=== PATIENT | female | born 1970 | race Two or more races ===

== ENCOUNTER 2021-08-24 12:47 | Emergency (ER) | payer MEDICAID, OTHER ==
[~2021-08-24] VITALS: Ht 152.4 cm; Wt 56.7 kg
[2021-08-24 14:08] LABS: Urine Bacteria FEW /hpf (None Seen); Urine Blood Negative /uL (Negative); Urine Specific Gravity 1.028 (1.001-1.035); Urine WBC 19 /hpf (0 - 5)
[2021-08-24] MEDS ORDERED: SULF400T11 PO (16:25)
[2021-08-24 16:51] LABS: Basophils # (auto) 0 10 ^3/uL (0-0.2); Basophils % (auto) 0.3 % (0.0-2.0); Eosinophils # (auto) 0.1 10 ^3/uL (0-0.8); Eosinophils % (auto) 0.7 % (0.0-7.0); Hematocrit 34.6 % (36.0-46.0); Hemoglobin 11.9 g/dL (12.2-16.2); Lymphocytes # (auto) 2.4 10 ^3/uL (0.4-5.4); Lymphocytes % (auto) 26.5 % (10.0-50.0); Mean Corpuscular Hgb Conc. 34.3 g/dL (32.0-36.0); Mean Corpuscular Volume 90.4 fL (80.0-100.0); Monocytes # (auto) 0.4 10 ^3/uL (0-1.3); Monocytes % (auto) 4.9 % (0.0-12.0); Neutrophils # (auto) 6.1 10 ^3/uL (1.6-8.6); Neutrophils % (auto) 67.6 % (37.0-80.0); Red Blood Cells 3.82 10^6/uL (4.0-5.20); Red Cell Distribution Width 13.7 % (11.8-14.3)
[2021-08-24 17:02] LABS: Albumin 3.1 g/dL (3.4-5.0); BUN/Creatinine Ratio 17.1; Calcium 9.4 mg/dL (8.5-10.1); Potassium 4.2 mmol/L (3.5-5.1)
[2021-08-24 17:05] LABS: Bilirubin, Total 0.2 mg/dL (0.2-1.0); Total Protein 6.8 g/dL (6.4-8.2)
[2021-08-24 17:50] VITALS: BP 142/79
== END 2021-08-24 18:02 | disposition home or self-care (01) ==
LOC: ER 12:47
DX: N39.0 Urinary tract infection, site not specified (principal); I10 Essential (primary) hypertension; E11.9 Type 2 diabetes mellitus without complications
CPT/HCPCS: 36415; 74176; 80053; 81001; 81025; 83690; 85025

== ENCOUNTER 2021-12-14 16:47 | Emergency (ER) | payer MEDICAID ==
[~2021-12-14] VITALS: Ht 152.4 cm; Wt 54.4 kg
[~2021-12-14 16:47] MED LIST: SULF400T11 PO
[2021-12-14 18:18] LABS: Basophils # (auto) 0 10 ^3/uL (0-0.2); Basophils % (auto) 0.4 % (0.0-2.0); Eosinophils # (auto) 0 10 ^3/uL (0-0.8); Eosinophils % (auto) 0.1 % (0.0-7.0); Hematocrit 35.5 % (36.0-46.0); Hemoglobin 11.2 g/dL (12.2-16.2); Lymphocytes # (auto) 1.2 10 ^3/uL (0.4-5.4); Lymphocytes % (auto) 11.1 % (10.0-50.0); Mean Corpuscular Hemoglobin 29.3 pg (28.0-32.0); Mean Corpuscular Hgb Conc. 31.6 g/dL (32.0-36.0); Mean Corpuscular Volume 92.7 fL (80.0-100.0); Monocytes # (auto) 0.3 10 ^3/uL (0-1.3); Monocytes % (auto) 2.7 % (0.0-12.0); Neutrophils # (auto) 9.6 10 ^3/uL (1.6-8.6); Neutrophils % (auto) 85.7 % (37.0-80.0); Red Blood Cells 3.83 10^6/uL (4.0-5.20); Red Cell Distribution Width 13.8 % (11.8-14.3); White Blood Cell 11.2 10^3/uL (4.4-10.8)
[2021-12-14 18:31] LABS: Albumin 3.4 g/dL (3.4-5.0); Calcium 9.6 mg/dL (8.5-10.1); Potassium 5.2 mmol/L (3.5-5.1)
[2021-12-14 18:33] LABS: Bilirubin, Total 0.3 mg/dL (0.2-1.0)
[2021-12-14 19:28] LABS: BUN/Creatinine Ratio 14.7
[2021-12-14] MEDS ORDERED: InsuLIN REG 1unit/0.01ml Soln (100units/ml) SC ONE (19:45)
[2021-12-14 21:29] LABS: Urine Bacteria FEW /hpf (None Seen); Urine Blood TRACE /uL (Negative); Urine Specific Gravity 1.031 (1.001-1.035); Urine WBC 11 /hpf (0 - 5)
[2021-12-14 22:43] VITALS: BP 140/82
== END 2021-12-14 23:06 | disposition home or self-care (01) ==
LOC: ER 16:47
DX: E11.65 Type 2 diabetes mellitus with hyperglycemia (principal); I10 Essential (primary) hypertension
CPT/HCPCS: 36415; 80053; 81001; 82962; 85025; 96372; 99283; J1815

== ENCOUNTER 2022-05-13 10:40 | Emergency (ER) | payer MEDICAID ==
[~2022-05-13] VITALS: Ht 152.4 cm; Wt 57.0 kg
[2022-05-13] MEDS ORDERED: cloNIDine HCL 0.1 MG TAB PO ONE (11:15)
[2022-05-13] MEDS ORDERED: IBUPROFEN 400 MG TAB PO ONE (11:45)
[2022-05-13] MEDS ORDERED: ACETAMINOPHEN 325 MG TAB PO ONE (11:45)
[2022-05-13] MEDS ORDERED: LIDOCAINE 5% TOPICAL PATCH TOP ONE (11:45)
[2022-05-13] MEDS ORDERED: METHOCARBAMOL 500 MG TAB PO ONE (11:45)
[2022-05-13 12:26] LABS: Basophils # (auto) 0.1 10 ^3/uL (0-0.2); Basophils % (auto) 0.5 % (0.0-2.0); Eosinophils # (auto) 0.1 10 ^3/uL (0-0.8); Eosinophils % (auto) 0.4 % (0.0-7.0); Hematocrit 38.4 % (36.0-46.0); Hemoglobin 12.6 g/dL (12.2-16.2); Lymphocytes # (auto) 2.5 10 ^3/uL (0.4-5.4); Lymphocytes % (auto) 20.4 % (10.0-50.0); Mean Corpuscular Hemoglobin 29.7 pg (28.0-32.0); Mean Corpuscular Hgb Conc. 32.8 g/dL (32.0-36.0); Mean Corpuscular Volume 90.7 fL (80.0-100.0); Monocytes # (auto) 0.5 10 ^3/uL (0-1.3); Monocytes % (auto) 3.9 % (0.0-12.0); Neutrophils # (auto) 9.2 10 ^3/uL (1.6-8.6); Neutrophils % (auto) 74.8 % (37.0-80.0); Red Blood Cells 4.23 10^6/uL (4.0-5.20); Red Cell Distribution Width 13.3 % (11.8-14.3); White Blood Cell 12.3 10^3/uL (4.4-10.8)
[2022-05-13 12:47] LABS: Albumin 3.1 g/dL (3.4-5.0); BUN/Creatinine Ratio 19.2; Calcium 9.4 mg/dL (8.5-10.1); Potassium 4.1 mmol/L (3.5-5.1)
[2022-05-13 12:49] LABS: Bilirubin, Total 0.3 mg/dL (0.2-1.0); Total Protein 7.2 g/dL (6.4-8.2)
[2022-05-13 13:24] LABS: Urine Bacteria FEW /hpf (None Seen); Urine Blood TRACE /uL (Negative); Urine Specific Gravity 1.025 (1.001-1.035); Urine WBC 32 /hpf (0 - 5)
[2022-05-13] MEDS ORDERED: NITROFURANTOIN 100 mg CAP PO ONE (13:30)
[2022-05-13] MEDS ORDERED: ACET-1079 PO ×2 (16:33→17:05)
[2022-05-13] MEDS ORDERED: LIDO5DIS21 TOP ×2 (16:33→17:05)
[2022-05-13] MEDS ORDERED: CYCL-838 PO ×2 (16:33→17:05)
[2022-05-13] MEDS ORDERED: NITR-87 PO ×2 (16:33→17:05)
[2022-05-13] MEDS ORDERED: IBUP400T23 PO ×2 (16:33→17:05)
[2022-05-13 17:01] VITALS: BP 99/69
== END 2022-05-13 17:03 | disposition home or self-care (01) ==
LOC: ER 10:40
DX: N39.0 Urinary tract infection, site not specified (principal); R51.9 Headache, unspecified; E11.9 Type 2 diabetes mellitus without complications; I10 Essential (primary) hypertension; Z98.890 Other specified postprocedural states; Z79.899 Other long term (current) drug therapy
CPT/HCPCS: 36415; 70450; 80053; 81001; 81025; 85025; 86850; 86900; 86901

== ENCOUNTER 2022-07-28 21:06 | Emergency (ER) | payer MEDICAID ==
[~2022-07-28] VITALS: Ht 152.4 cm; Wt 61.3 kg
[~2022-07-28 21:06] MED LIST changes: +ACET-1079 PO; +CYCL-838 PO; +IBUP400T23 PO; +LIDO5DIS21 TOP; +NITR-87 PO
[2022-07-28 21:37] VITALS: BP 157/74
[2022-07-28] MEDS ORDERED: AMOX-277 PO (22:40)
[2022-07-28] MEDS ORDERED: IBUP800T27 PO (22:40)
[2022-07-28] MEDS ORDERED: HYDROcodone-ACET 5/325MG TAB PO ONE (22:45)
[2022-07-28] MEDS ORDERED: ONDANSETRON ODT 4 MG TAB PO ONE (22:45)
== END 2022-07-28 22:49 | disposition home or self-care (01) ==
LOC: ER 21:06
DX: K04.7 Periapical abscess without sinus (principal); E11.9 Type 2 diabetes mellitus without complications; I10 Essential (primary) hypertension; Z88.1 Allergy status to other antibiotic agents; Z88.6 Allergy status to analgesic agent
CPT/HCPCS: 99283; Q0162

== ENCOUNTER 2023-08-23 19:06 | Emergency (ER) | payer MEDICAID ==
[~2023-08-23] VITALS: Ht 152.4 cm; Wt 56.8 kg
[~2023-08-23 19:06] MED LIST changes: +AMOX875T4 PO; +CIPR-173 PO; +GLIP5TAB12 PO; +IBUP-1456 PO; +IBUP1TAB4 PO; -IBUP400T23 PO; +TRAM50TA2 PO; +ZOFR4T PO
[2023-08-23 19:51] VITALS: BP 154/70; RESP 18; O2SAT 99
[2023-08-23 22:23] LABS: Basophils # (auto) 0.1 10 ^3/uL (0-0.2); Basophils % (auto) 0.6 % (0.0-2.0); Eosinophils # (auto) 0.1 10 ^3/uL (0-0.8); Eosinophils % (auto) 1.1 % (0.0-7.0); Hematocrit 34.6 % (36.0-46.0); Hemoglobin 11.5 g/dL (12.2-16.2); Lymphocytes # (auto) 3.2 10 ^3/uL (0.4-5.4); Lymphocytes % (auto) 34.9 % (10.0-50.0); Mean Corpuscular Hemoglobin 29.6 pg (28.0-32.0); Mean Corpuscular Hgb Conc. 33.3 g/dL (32.0-36.0); Mean Corpuscular Volume 89.1 fL (80.0-100.0); Monocytes # (auto) 0.4 10 ^3/uL (0-1.3); Monocytes % (auto) 4.1 % (0.0-12.0); Neutrophils # (auto) 5.4 10 ^3/uL (1.6-8.6); Neutrophils % (auto) 59.3 % (37.0-80.0); Nucleated Red Blood Cells % 0.1 %; Red Blood Cells 3.88 10^6/uL (4.0-5.20); Red Cell Distribution Width 13.3 % (11.8-14.3)
[2023-08-23 22:31] LABS: Albumin 4.2 g/dL (3.2-4.8); Alkaline Phosphatase 86 U/L (46-116); Anion Gap 5 (5-15); Aspartate Aminotransferase 11 U/L (13-40); BUN/Creatinine Ratio 15.6 (10.0-20.0); Bilirubin, Total 0.4 mg/dL (0.2-1.0); Blood Urea Nitrogen 15 mg/dL (9-23); Calcium 9.7 mg/dL (8.5-10.1); Carbon Dioxide 26 mmol/L (20-30); Chloride 107 mmol/L (98-107); Glucose 297 mg/dL (74-106); Sodium 138 mmol/L (136-145); Total Protein 6.4 g/dL (5.7-8.2)
[2023-08-23 22:34] LABS: Alanine Aminotransferase < 9 U/L (7-40)
[2023-08-23 23:15] VITALS: PULSE 91
[2023-08-23] MEDS: KETOROLAC TROMETH 30 MG/ML 1ML VIAL IM ONE (23:36)
== END 2023-08-23 23:46 | disposition home or self-care (01) ==
LOC: ER 19:06
DX: M54.6 Pain in thoracic spine (principal); M25.512 Pain in left shoulder; I10 Essential (primary) hypertension; E11.9 Type 2 diabetes mellitus without complications; Z98.890 Other specified postprocedural states; Z79.899 Other long term (current) drug therapy
CPT/HCPCS: 36415; 71045; 73010; 73030; 80053; 84484; 85025; 93005; 96372; 99285; J1885